=== PATIENT | female | born 1980 | race Hispanic/Latino ===

== ENCOUNTER 2023-01-13 08:34 | Emergency (ER) | payer SELFPAY ==
[2023-01-13 09:20] LABS: Absolute Lymphocytes (CBC) 2.2 K/uL (0.7-4.9); Hematocrit 43.4 % (36.0-45.0); Lymphocytes % 30.9 % (15.3-44.8); MCV 84.9 fL (80-100); MPV 8.1 fL (7.6-11.3); Platelets 298 thou/uL (152-406); RBC Red Blood Cell Count 5.11 M/uL (3.86-4.86)
[2023-01-13 09:28] LABS: Specific Gravity > 1.030 (1.005-1.030); Urine Bacteria None Seen /HPF (<20); Urine Bilirubin NEGATIVE (Negative); Urine Blood 2+ (Negative); Urine Clarity Clear (Clear); Urine Color Light-Yellow (Yellow); Urine Glucose 4+ (Over) (Negative); Urine Mucus Slight /HPF (None Seen); Urine Protein TRACE (Negative); Urine RBC <5 /HPF (None Seen); Urine Urobilinogen Normal (Normal)
[2023-01-13 09:42] LABS: Albumin 3.8 g/dL (3.4-5.0); Bilirubin Total 0.8 mg/dL (0.2-1.0); Potassium 3.8 mEq/L (3.5-5.1); Protein, Total 8.6 g/dL (6.4-8.2)
--- NOTE | 2023-01-13 10:35 | RAD REPORT ---
EXAM DESCRIPTION: CT - Abdomen Pelvis W Contrast - 01/13/2023 9:58 am CLINICAL HISTORY: ABD PAIN COMPARISON: No comparisons TECHNIQUE: Thin cut axial CT imaging of the abdomen and pelvis was performed following intravenous a dministration of 100 mL Isovue 300. Multiplanar reformats were generated and reviewed. All CT scans are performed using dose optimization technique as appropriate and may include automated exposure control or mA/KV adjustment according to patient size. FINDINGS: No suspicious findings in the lung bases. The liver, spleen, adrenal glands, and pancreas show no suspicious findings. Gallbladder demonstrates multiple large cholesterol containing gallstones. No evidence of intra or extrahepatic biliary ducta l dilation. Symmetric renal function is seen with no hydronephrosis or suspicious renal mass. No dilated bowel loops or bowel wall thickening. No free air, free fluid or inflammatory stranding. N o hernia, mass or bulky lymphadenopathy. The urinary bladder is decompressed, limiting evaluation. No suspicious bony findings. IMPRESSION: Large cholesterol containing stones. No other acute intra-abdominal process.
--- NOTE | 2023-01-13 10:43 | EDPHYS ---
Physician Documentation [facility] Name: Elana Simon Age: 42 yrs Sex: Female : 1980 Arrival Date: 01/13/2023 Time: 08:34 Bed 7 Private MD: ED Physician Reza Echols HPI: 01/13 09:11 This 42 yrs old Female presents to ER via Ambulatory with complaints of sb4 Abdominal Pain, Back Pain. 09:11 The patient presents with abdominal pain in the right upper quadrant. Onset: The sb4 symptoms/episode began/occurred 6 day(s) ago. The symptoms radiate to right back. Associated signs and symptoms: Pertinent positives: nausea and vomiting, Pertinent negatives: constipation, diarrhea, fever. The symptoms are described as crampy, waxing/waning. Modifying factors: The symptoms are alleviated by nothing, the symptoms are aggravated by food. The patient has not experienced similar symptoms in the past. The patient has not recently seen a physician. Historical: - Allergies: 09:05 No Known Allergies; ll1 - PMHx: 08:54 None; ll1 - PSHx: 09:05 wrist SX; ll1 - Immunization history:: Adult Immunizations up to date. - Social history:: Smoking status: Patient denies any tobacco usage or history of. ROS: 09:11 Constitutional: Negative for fever, chills, and weight loss, sb4 09:11 Abdomen/GI: Positive for abdominal pain, nausea and vomiting, 09:11 All other systems are negative, Exam: 09:11 Constitutional: This is a well developed, well nourished patient who is awake, alert, sb4 and in no acute distress. Head/Face: Normocephalic, atraumatic. Eyes: Extra-ocular motions intact. Periorbital areas with no swelling, redness, or edema. ENT: Mucous membranes moist. Cardiovascular: Regular rate and rhythm with a normal S1 and S2. Respiratory: Lungs have equal breath sounds bilaterally, clear to auscultation and percussion. No rales, rhonchi or wheezes noted. No increased work of breathing, no retractions or nasal flaring. Abdomen/GI: Soft, non-tender, no distension. MS/ Extremity: Pulses equal, no cyanosis. Neurovascular intact. Full, normal range of motion. Neuro: Awake and alert, GCS 15, oriented to person, place, time, and situation. Motor strength 5/5 in all extremities. Sensory grossly intact. Vital Signs: 08:53 BP 130 / 86; Pulse 74; Resp 17; Temp 98.4; Pulse Ox 99% ; Weight 106.59 kg; Height 5 ll1 ft. 2 in. ; Pain 6/10; 09:16 BP 143 / 85; Pulse 71; Resp 18; Pulse Ox 100% on R/A; Pain 6/10; ld1 10:38 BP 135 / 83; Pulse 83; Resp 18; Pulse Ox 100% on R/A; ld1 08:53 Body Mass Index 42.98 (106.59 kg, 157.48 cm) ll1 08:53 Pain Scale: Adult ll1 09:16 Pain Scale: Adult ld1 MDM: 08:44 Patient medically screened. sb4 09:11 Differential diagnosis: cholecystitis, Cholelithiasis, gastritis, non-specific abd sb4 pain, pancreatitis. 10:40 Data reviewed: vital signs, nurses notes, lab test result(s), radiologic studies, I sb4 have discussed the patient's presentation/case with the attending Emergency Department Physician; and as a result, I will discharge patient. Consideration of Admission/Observation Escalation of care including admission/observation considered. Counseling: I had a detailed discussion with the patient and/or guardian regarding the historical points, exam findings, and any diagnostic results supporting the discharge/admit diagnosis, the presence of at least one elevated blood pressure reading (>120/80) during this emergency department visit, lab results, radiology results, the need for outpatient follow up, for definitive care, a general surgeon, to return to the emergency department if symptoms worsen or persist or if there are any questions or concerns that arise at home. ED course: discussed that patient's lab findings are highly suggestive of diabetes. she believes her high blood sugar is secondary to the sugar intake this morning. she will follow up as an outpatient. i also discussed that she has large gallstones and the dietary modifications she needs to make but will likely require elective cholecystectomy in the future. referral to general surgeon given. 01/13 08:48 Order name: CBC with Diff; Complete Time: 09:30 sb4 01/13 08:48 Order name: CMP; Complete Time: 09:42 sb4 01/13 08:48 Order name: Lipase; Complete Time: 09:42 sb4 01/13 08:48 Order name: UAM; Complete Time: 09:30 sb4 01/13 08:48 Order name: Test, Urine; Complete Time: 09:30 sb4 01/13 08:48 Order name: CT Abd/Pelvis - IV Contrast Only; Complete Time: 10:36 sb4 01/13 08:48 Order name: IV Saline Lock; Complete Time: 09:16 sb4 01/13 08:48 Order name: Labs collected and sent; Complete Time: 09:16 sb4 Administered Medications: No medications were administered Disposition: 09:41 I was immediately available on-site in the Emergency Department for consultation in the ms3 care of the patient. Disposition Summary: 01/13/23 10:42 Discharge Ordered Notes: Location: Home sb4 Problem: an ongoing problem sb4 Symptoms: have improved sb4 Condition: Stable sb4 Diagnosis - Other cholelithiasis without obstruction sb4 - Hyperglycemia, unspecified sb4 Followup: sb4 - With: Anurag Lee DO - When: 2 - 3 days - Reason: Recheck today's complaints, Continuance of care, Re-evaluation by your physician Followup: sb4 - With: Iggy Blanco MD - When: As needed - Reason: Further diagnostic work-up, Recheck today's complaints, Re-evaluation by your physician Discharge Instructions: - Discharge Summary Sheet sb4 - Hyperglycemia sb4 - Cholelithiasis sb4 - Preventing Type 2 Diabetes Mellitus sb4 Forms: - Medication Reconciliation Form sb4 - Thank You Letter sb4 - Antibiotic Education sb4 - Prescription Opioid Use sb4 - Patient Portal Instructions sb4 - Leadership Thank You Letter sb4 Prescriptions: - Tramadol 50 mg Oral Tablet - take 1 tablet ORAL route every 8 hours as needed; 12 tablet; Refills: 0, sb4 Product Selection Permitted Signatures: Dispatcher [employer] EDMS Lizette Delvalle, RN RN ll1 Reza Echols DO DO ms3 Mae Au PA-C PA-C sb4 Corrections: (The following items were deleted from the chart) 09:06 08:54 PSHx: None; ll1 ll1
--- NOTE | 2023-01-13 10:43 | ER ---
Nurse's Notes [facility] Name: Elana Simon Age: 42 yrs Sex: Female : 1980 Arrival Date: 01/13/2023 Time: 08:34 Bed 7 Private MD: Diagnosis: Other cholelithiasis without obstruction;Hyperglycemia, unspecified Presentation: 01/13 08:53 Chief complaint: Patient states: Upper abd pain and back pain since . Ebola ll1 Screen: Patient denies travel to an Ebola-affected area in the 21 days before illness onset. Initial Sepsis Screen: Does the patient meet any 2 criteria? No. Patient's initial sepsis screen is negative. Does the patient have a suspected source of infection? Yes: Acute abdominal pain. Risk Assessment: Do you want to hurt yourself or someone else? Patient reports no desire to harm self or others. Onset of symptoms was January 07, 2023. 08:53 Method Of Arrival: Ambulatory ll1 08:53 Acuity: MULU 3 ll1 08:53 Coronavirus screen: Client denies travel out of the [place] in the last 14 days. At this ll1 time, the client does not indicate any symptoms associated with coronavirus-19. Historical: - Allergies: 09:05 No Known Allergies; ll1 - PMHx: 08:54 None; ll1 - PSHx: 09:05 wrist SX; ll1 - Immunization history:: Adult Immunizations up to date. - Social history:: Smoking status: Patient denies any tobacco usage or history of. Screenin:16 [facility] ED Fall Risk Assessment (Adult) History of falling in the last 3 months, ld1 including since admission No falls in past 3 months (0 pts). Abuse screen: Denies threats or abuse. Denies injuries from another. Nutritional screening: No deficits noted. Tuberculosis screening: No symptoms or risk factors identified. Assessment: 09:16 General: Appears in no apparent distress. comfortable, Behavior is calm, cooperative, ld1 appropriate for age. Pain: Complains of pain in mid back area and right upper quadrant Pain does not radiate. Pain currently is 6 out of 10 on a pain scale. Quality of pain is described as throbbing, Pain began 2-3 days ago. Is continuous. Neuro: No deficits noted. Neuro: Joseph Agitation-Sedation Scale (RASS): 0 - Alert and Calm Level of Consciousness is awake, alert, obeys commands, Oriented to person, place, time, situation, Appropriate for age. Cardiovascular: Capillary refill < 3 seconds Patient's skin is warm and dry. Respiratory: Respiratory effort is even, unlabored, Respiratory pattern is regular. GI:. GI: Bowel sounds present X 4 quads. Abd is soft and non tender. GI: Reports upper abdominal pain. : No signs and/or symptoms were reported regarding the genitourinary system. EENT: No signs and/or symptoms were reported regarding the EENT system. Derm: No signs and/or symptoms reported regarding the dermatologic system. Musculoskeletal: No signs and/or symptoms reported regarding the musculoskeletal system. Vital Signs: 08:53 BP 130 / 86; Pulse 74; Resp 17; Temp 98.4; Pulse Ox 99% ; Weight 106.59 kg; Height 5 ll1 ft. 2 in. ; Pain 6/10; 09:16 BP 143 / 85; Pulse 71; Resp 18; Pulse Ox 100% on R/A; Pain 6/10; ld1 10:38 BP 135 / 83; Pulse 83; Resp 18; Pulse Ox 100% on R/A; ld1 08:53 Body Mass Index 42.98 (106.59 kg, 157.48 cm) ll1 08:53 Pain Scale: Adult ll1 09:16 Pain Scale: Adult ld1 ED Course: 08:35 Patient arrived in ED. rg4 08:36 Mae Au PA-C is PHCP. sb4 08:36 Reza Echols DO is Attending Physician. sb4 08:45 Arm band placed on Patient placed in an exam room, on a stretcher. kl 08:54 Triage completed. ll1 09:15 Vidya Echols, RN is Primary Nurse. ld1 09:16 Patient has correct armband on for positive identification. Bed in low position. Call ld1 light in reach. Side rails up X2. Provided Education on: n/a. Client placed on continuous cardiac and pulse oximetry monitoring. NIBP monitoring applied. Door closed. Noise minimized. Warm blanket given. 09:16 Inserted saline lock: 22 gauge in right antecubital area, using aseptic technique. ld1 Blood collected. 09:59 CT Abd/Pelvis - IV Contrast Only In Process Unspecified. EDMS 10:42 Anurag Lee DO is Referral Physician. sb4 10:42 Iggy Blanco MD is Referral Physician. sb4 10:55 No provider procedures requiring assistance completed. IV discontinued, intact, ld1 bleeding controlled, No redness/swelling at site. Administered Medications: No medications were administered Medication: 10:56 VIS not applicable for this client. ld1 Outcome: 10:42 Discharge ordered by MD. sb4 10:55 Discharged to home ambulatory, ld1 10:55 Condition: stable 10:55 Discharge instructions given to patient, Instructed on discharge instructions, follow up and referral plans. medication usage, Demonstrated understanding of instructions, follow-up care, medications, 10:56 Patient left the ED. ld1 Signatures: Dispatcher [employer] EDSD Maribel Delvalle, RN Tracy Sibley rg4 Lizette Delvalle RN RN ll1 Vidya Echols RN RN ld1 Mae Au, PAReuben PAReuben sb4 Corrections: (The following items were deleted from the chart) 09:05 08:53 BP 130 / 86; Pulse 74bpm; Resp 17bpm; Pulse Ox 99%; ll1 ll1 09:06 08:54 PSHx: None; ll1 ll1
[2023-01-13 11:02] VITALS: TEMP 98.4
[2023-01-13 11:03] VITALS: O2SAT 100
[2023-01-13 11:04] VITALS: BP 135/83
== END 2023-01-13 10:56 | disposition home or self-care (01) ==
LOC: ER 08:34
DX: K80.80 Other cholelithiasis without obstruction (principal); R73.9 Hyperglycemia, unspecified
CPT/HCPCS: 36415; 74177; 80053; 81001; 81025; 83690; 85025; Q9967